=== PATIENT | female | born 1975 | race Caucasian/White ===

== ENCOUNTER 2016-09-22 18:13 | Inpatient (IN) | payer BC, OTHER ==
--- NOTE | ~2016-09-22 | CT4 ---
[facility] A Service of [facility] & [facility] RADIOLOGY TEXT RESULTS PATIENT: HEVER MAYA LOCATION: [facility] - : 71 UNIT #: [id number] AGE: [address]: Lucian Xiong MD SEX: F ORDER DR: [id number] [facility] [address] [place], [place] [address] [id number] I MR#: [id number] Acc #: [id number] NAME: HEVER MAYA. : 1975 SEX: F STUDY DATE/TIME: 09/26/2016 9:50 UNIT: [facility] ROOM: 216 STUDY DESCRIPTION: CT Abd and Pelv Wo Cont Attending Physician: Lucian Xiong M.D. Ordering Physician: Bruce Yates M.D. Primary Care Physician: Inocencio Ram M.D. MEDICAL IMAGING REPORT This report is preliminary unless electronic signature is present EXAM CT of the abdomen and pelvis without contrast INDICATIONS Follow up perforated sigmoid diverticulitis with abscess. TECHNIQUE CT of the abdomen and pelvis was performed without contrast. Coronal and sagittal reformatted images were obtained. Comparison is made with 09/22/2016. This CT exam was performed with one or more of the following radiation dose reduction techniques: Automatic exposure control, adjustment of mA and/or kV according to patient size, and iterative reconstruction. FINDINGS There are tiny bilateral pleural effusions with associated atelectasis in the lower lobes. Liver is unremarkable. Cholelithiasis. The spleen is unremarkable. Punctate, nonobstructing stone in the left kidney. Right kidney unremarkable. The adrenal glands and pancreas are both unremarkable. There are a few small foci of retroperitoneal gas in the region of the kidneys. These have decreased slightly. Further down the retroperitoneum, there is some stranding in the region of the aortic bifurcation. PELVIS: Redemonstrated is a small diverticular abscess deep within the pelvis at the midline. Overall, it is unchanged in size, measuring about 4.4 x 3.7 cm. The collection, due to its location deep within the pelvis and surrounded by bowel, vessels and bony structures is not amenable for percutaneous drainage or aspiration at this time. There is trace free fluid in the deep pelvis. The remainder of the pelvis is unchanged. Bone windows are unremarkable. IMPRESSION [facility] A Service of [facility] & [facility] RADIOLOGY TEXT RESULTS PATIENT: HEVER MAYA LOCATION: [facility] 216-01 : 71 UNIT #: [id number] AGE: [address]: Lucian Xiong MD SEX: F ORDER DR: Stable diverticular abscess deep within the pelvis as described above. It is unchanged in size. However, due to its location, it is unable to be accessed percutaneously for either aspiration or drainage. Dictated by... Иван Velarde M.D. THIS IS AN ELECTRONICALLY VERIFIED REPORT Иван Velarde M.D. at 09/27/2016 2:20 PM AKANKSHA/marco TD: 09/26/2016 23:36 JOB #: [id number] MEDICAL IMAGING REPORT Page 1 of 1 COPY
--- NOTE | ~2016-09-22 | CT2 ---
[facility] A Service of [facility] & [facility] RADIOLOGY TEXT RESULTS PATIENT: HEVER MAYA LOCATION: [facility] 216- : 71 UNIT #: [id number] AGE: [address]: Lucian Xiong MD SEX: F ORDER DR: [id number] [facility] [address] [place], [place] [address] [id number] E MR#: [id number] Acc #: [id number] NAME: HEVER MAYA. : 1975 SEX: F STUDY DATE/TIME: 09/22/2016 21:24 UNIT: [facility] ROOM: STUDY DESCRIPTION: CT Abd and Pelv W Cont Attending Physician: Eric Crockett M.D. Ordering Physician: Torres Meyer D.O. Primary Care Physician: Inocencio Ram M.D. MEDICAL IMAGING REPORT This report is preliminary unless electronic signature is present EXAM CT of the abdomen and pelvis with contrast. HISTORY Abdominal pain, fever x3 days, nausea, diarrhea. COMPARISON CT abdomen and pelvis 09/29/2010. TECHNIQUE Axial images performed through the abdomen and pelvis following IV and oral contrast. Multiplanar reconstructed images reviewed at a workstation. This CT exam was performed with one or more of the following radiation dose reduction techniques: automatic exposure control, adjustment of mA and/or kV according to patient size, and iterative reconstruction. FINDINGS ABDOMEN: Lung bases unremarkable. Diffuse fatty infiltration of the liver. Solitary gallstone but no evidence of cholecystitis. Spleen unremarkable except for granulomas. Pancreas, kidneys and adrenal glands appear normal. There is extensive bowel wall thickening involving the sigmoid colon within the central pelvis extending over at least 14 cm in length. This is nonspecific, but most likely indicative of diverticulitis. There are a few scattered colonic diverticula. Superior to the area of bowel wall thickening and pericolonic inflammatory change, there is a 4.6 x 3.7 x 5 cm air and fluid-filled collection concerning for abscess. Soft tissue gas noted superior to the suspected abscess. There is mild distension of several small bowel loops, possibly related to ileus or low grade obstruction. Aorta and IVC unremarkable except for a few shotty retroperitoneal lymph nodes. [facility] A Service of [facility] RADIOLOGY TEXT RESULTS PATIENT: HEVER MAYA LOCATION: A 216-01 : 71 UNIT #: [id number] AGE: [address]: Lucian Xiong MD SEX: F ORDER DR: PELVIS: The bladder, uterus unremarkable. Osseous structures show mild degenerative change of the lower lumbar spine. Moderate obesity. IMPRESSION 1. Extensive colonic wall thickening involving the sigmoid colon over at least a 14 cm length with surrounding pericolonic inflammatory changes. This most likely represents sigmoid diverticulitis, however, recommend clinical follow up to resolution. Superior to the area of suspected diverticulitis, there is a fluid and air-filled collection compatible with a intraabdominal abscess measuring up to 5 cm. Moderate amount of extraluminal gas is seen within the mesentery. This may in part be retroperitoneal. 2. Diffuse fatty infiltration of the liver. 3. Solitary gallstone. Dictated by... Joshua Velarde M.D. THIS IS AN ELECTRONICALLY VERIFIED REPORT Joshua Velarde M.D. at 09/23/2016 10:08 PM Ihsan TD: 09/22/2016 22:50 JOB #: [id number] MEDICAL IMAGING REPORT Page 1 of 1 COPY
--- NOTE | ~2016-09-22 | DS ---
Unit #: [id number] #: [id number] Patient: HEVER MAYA [id number] [address] [address] [id number] I MR#: [id number] NAME: HEVER MAYA. ROOM: 216 Age: 41 Sex: F Admission Date: 09/23/2016 : 1975 Discharge Date: 09/29/2016 Attending Physician: Lucian Xiong M.D. Primary Care Physician: Inocencio Ram M.D. DISCHARGE SUMMARY DISCHARGE DIAGNOSES 1. Acute sigmoid diverticulitis with small abscess formation. 2. Diabetes mellitus. 3. Morbid obesity. OPERATIVE PROCEDURES None. DISCHARGE MEDICATIONS 1. Augmentin 875 mg one p.o. b.i.d. 2. Flagyl 250 mg one p.o. q.i.d. 3. Percocet 7.5 mg one p.o. q.6 hours p.r.n. pain. The rest of the medications are as listed per nurse's notes and the medical reconciliation sheet. HISTORY OF PRESENT ILLNESS AND HOSPITAL COURSE A 41-year-old obese white female diabetic with left lower quadrant pain. CT scan showing diverticulitis with possible walled-off abscess. It was small enough that it could not be drained; however, we treated with intravenous antibiotics. Medical consultation followed the patient for her diabetes and hypertension. The patient became afebrile and her white blood cell count came down to normal. Overall, she presently at this time is tolerating solid food. She has had no fever in the last three days. The patient will be discharged on low-residue diet. She will come back to see us in the office in 7-10 days for followup evaluation. All the options for the patient were given as far as having to do a temporary colostomy versus bowel clean out. We will treat her conservatively at this time at patient request. Dictated by... Bruce Yates M.D. VALENTIN/myles TD: 09/29/2016 09:06 JOB #: [id number] Unit #: [id number] #: [id number] Patient: HEVER MAYA DISCHARGE SUMMARY Page 1 of 1 X Bruce Yates MD DISCHARGE SUMMARY
--- NOTE | ~2016-09-22 | HP ---
Unit #: [id number] #: [id number] Patient: HEVER MAYA [id number] [address] [place], [place] [address] [id number] I MR#: [id number] NAME: HEVER MAYA. ROOM: 216 Age: 41 Sex: F Admission Date: 09/23/2016 : 1975 Attending Physician: Roman Xiong M.D. Primary Care Physician: Inocencio Ram M.D. HISTORY AND PHYSICAL Ms. Maya is a 41-year-old, obese white female, diabetic, with three to four day history of lower abdominal pain, cramps, nausea, fever and leukocytosis. She was seen in the emergency department. CT scan of the pelvis was obtained and shows diverticulitis with 5 cm pericolonic abscess. She also was noted to have one gallstone but no evidence of any other gallbladder disease clinically. MEDICATIONS Include: 1. Lisinopril. 2. Metformin. 3. Hydrochlorothiazide. 4. Cipro. PAST SURGICAL HISTORY She has had previous section but no other operations. PAST MEDICAL HISTORY Otherwise shows: 1. History of questionable congestive heart failure. 2. Hypertension. 3. Diabetes. She does use alcohol but she is a nonsmoker. No illicit drug use. REVIEW OF SYSTEMS Otherwise noncontributory. PHYSICAL EXAMINATION GENERAL: Cooperative, alert, obese white female. VITAL SIGNS: Temperature 99 degrees, pulse 116, respirations 17, blood pressure 111/75. ENT: Clear. There is no jaundice. Pupils equal, reactive to light and accommodation. CHEST: Clear to auscultation and percussion. CARDIAC: Rhythm is regular. No audible murmurs. ABDOMEN: Soft, nondistended but she does have 2+ guarding in the left lower quadrant with slight rebound tenderness in the lower pelvis. There is no evidence of any rigidity or diffuse peritoneal signs consistent with perforation. EXTREMITIES: Full range of motion. 1-2+ peripheral pulses bilaterally. No edema. NEUROLOGICAL: Cranial nerves II-XII intact with no gross motor sensory deficits. She is oriented x3 with normal behavioral pattern. Unit #: [id number] #: [id number] Patient: HEVER MAYA IMPRESSION Local perforated diverticulitis with 5 cm abscess. PLAN We will increase antibiotic coverage. We will ask interventional radiology whether or not they think this can be drained percutaneously. Will see the patient back and follow her very closely. Dictated by Bruce Yates M.D. VALENTIN/laurie TD: 09/23/2016 06:25 JOB #: [id number] HISTORY AND PHYSICAL Page 1 of 1 X Bruce Yates MD X HISTORY AND PHYSICAL
--- NOTE | ~2016-09-22 | EKG ---
PATIENT: HEVER MAYA UNIT #: [id number] Ventricular Rate: 55 BPM Atrial Rate: 55 BPM P-R Interval: 166 ms QRS Duration: 102 ms Q-T Interval: 452 ms QTC Calculation(Bezet): 432 ms P [place]: 10 degrees Calculated R [place]: -40 degrees Calculated T [place]: -8 degrees Diagnosis Line: Sinus bradycardia Diagnosis Line: Left axis deviation Diagnosis Line: RSR' or QR pattern in V1 suggests right Diagnosis Line: ventricular conduction delay Diagnosis Line: Abnormal ECG Diagnosis Line: No previous ECGs available Diagnosis Line: Confirmed by AJITH ANDREWS MD ([id number]) on Diagnosis Line: 09/28/2016 9:47:57 PM INTERPRETING MD: NORBERT
[2016-09-22 19:00] LABS: BASOPHIL# 0.1 X10e3 (0-0.3); BASOPHIL% 0.6 % (0-2.5); EOSINOPHIL# 0.2 X10e3 (0-0.7); EOSINOPHIL% 1.3 % (0.0-7.0); HEMATOCRIT 40.2 % (35.0-45.0); HEMOGLOBIN 13.4 gm/dL (12.0-16.0); LYMPHOCYTE# 2.1 X10e3 (1.0-3.5); MEAN CORPUSCULAR HEMOGLOBIN 31.7 PG (28-34); MEAN CORPUSCULAR HGB CONC 33.4 g/dL (30-36); MEAN PLATELET VOLUME 7.6 FL (6.5-11.5); MONOCYTE# 1.1 X10e3 (0-1.0); MONOCYTE% 5.6 % (3.0-12.0); NEUTROPHIL# 15.6 X10e3 (1.5-7.1); NEUTROPHIL% 81.5 % (40-75); PLATELET COUNT 296 X10e3 (140-420); RED BLOOD COUNT 4.24 X10e (3.90-5.30); WHITE BLOOD COUNT 19.1 X10e3 (4.0-10.5)
[2016-09-22 19:01] LABS: DIFF IND YES
[2016-09-22 19:18] LABS: ALBUMIN SERUM 3.8 g/dL (3.5-5.0); BILIRUBIN, DIRECT 0.2 mg/dL (0.0-0.2); BILIRUBIN,INDIRECT 0.8 mg/dL (0.0-0.9); BUN/CREATININE RATIO 14.44; CALCIUM SERUM 9.2 mg/dL (8.4-10.2); CREATININE SERUM 0.9 mg/dL (0.6-1.4); GLOM FILT RATE Estimated 78.4 mL/min (>60); POTASSIUM 3.9 mmol/L (3.5-5.1); PROTEIN TOTAL SERUM 7.6 g/dL (6.0-8.3)
[2016-09-22 19:28] LABS: PLATELET ESTIMATE NORMAL (NORMAL)
[2016-09-22 20:07] LABS: URINE SOURCE CLEAN CATCH
[2016-09-22 20:15] LABS: URINE APPEARANCE CLOUDY; URINE BILIRUBIN NEG (NEG); URINE BLOOD 3+ (NEG); URINE COLOR YELLOW; URINE GLUCOSE NEG (NEG); URINE KETONE NEG (NEG); URINE LEUKOCYTE ESTERASE TRACE (NEG); URINE NITRATE NEG (NEG); URINE PROTEIN NEG (NEG); URINE SPECIFIC GRAVITY 1.019 (1.003-1.035)
[2016-09-22 20:19] LABS: CULTURE INDICATED? YES; URINE BACTERIA AUWI 2+ (NEGATIVE); URINE SQUAMOUS EPITHELIAL CELL MOD /[HPF]
[2016-09-23] MEDS ORDERED: HYDROCHLOROTHIA25 MG PO (02:38)
[2016-09-23] MEDS ORDERED: METFORMIN HCL500 M3 PO (02:40)
[2016-09-23] MEDS ORDERED: PRINIVIL20 M1 PO (02:40)
[2016-09-23] MEDS ORDERED: VOLTAREN75 MG PO (02:42)
[2016-09-24 09:28] LABS: HEMOGLOBIN 11.5 gm/dL (12.0-16.0); MEAN CELL VOLUME 95.3 FL (83-96); MEAN CORPUSCULAR HEMOGLOBIN 32.3 PG (28-34); MEAN CORPUSCULAR HGB CONC 33.9 g/dL (30-36); MEAN PLATELET VOLUME 7.1 FL (6.5-11.5); RED BLOOD COUNT 3.57 X10e (3.90-5.30); RED CELL DISTRIBUTION WIDTH 12.7 % (11.0-15.5); WHITE BLOOD COUNT 10.1 X10e3 (4.0-10.5)
[2016-09-24 10:28] LABS: BUN/CREATININE RATIO 13.75; CALCIUM SERUM 8.3 mg/dL (8.4-10.2); CREATININE SERUM 0.8 mg/dL (0.6-1.4); GLOM FILT RATE Estimated 90.4 mL/min (>60); MAGNESIUM 1.9 mg/dL (1.6-3.0); POTASSIUM 3.9 mmol/L (3.5-5.1)
[2016-09-25 05:11] LABS: HEMATOCRIT 34.5 % (35.0-45.0); HEMOGLOBIN 11.5 gm/dL (12.0-16.0); MEAN CELL VOLUME 96.3 FL (83-96); MEAN CORPUSCULAR HEMOGLOBIN 32.1 PG (28-34); MEAN CORPUSCULAR HGB CONC 33.4 g/dL (30-36); MEAN PLATELET VOLUME 8.1 FL (6.5-11.5); RED BLOOD COUNT 3.58 X10e (3.90-5.30); RED CELL DISTRIBUTION WIDTH 12.4 % (11.0-15.5); WHITE BLOOD COUNT 8.6 X10e3 (4.0-10.5)
[2016-09-25 06:08] LABS: BUN/CREATININE RATIO 12.85; CALCIUM SERUM 8.4 mg/dL (8.4-10.2); CREATININE SERUM 0.7 mg/dL (0.6-1.4); GLOM FILT RATE Estimated 106.1 mL/min (>60); MAGNESIUM 1.9 mg/dL (1.6-3.0); POTASSIUM 4.3 mmol/L (3.5-5.1)
[2016-09-28 05:17] LABS: HEMATOCRIT 35.8 % (35.0-45.0); HEMOGLOBIN 12.1 gm/dL (12.0-16.0); MEAN CELL VOLUME 94.7 FL (83-96); MEAN CORPUSCULAR HEMOGLOBIN 32.1 PG (28-34); MEAN CORPUSCULAR HGB CONC 33.9 g/dL (30-36); MEAN PLATELET VOLUME 7.4 FL (6.5-11.5); RED BLOOD COUNT 3.78 X10e (3.90-5.30); WHITE BLOOD COUNT 12.2 X10e3 (4.0-10.5)
[2016-09-28 06:27] LABS: ALBUMIN SERUM 2.8 g/dL (3.5-5.0); BILIRUBIN,TOTAL 0.4 mg/dL (0.2-2.0); CALCIUM SERUM 8.8 mg/dL (8.4-10.2); CREATININE SERUM 0.8 mg/dL (0.6-1.4); GLOM FILT RATE Estimated 90.4 mL/min (>60); POTASSIUM 4.4 mmol/L (3.5-5.1); PROTEIN TOTAL SERUM 5.7 g/dL (6.0-8.3)
[2016-09-29 07:54] LABS: MEAN CELL VOLUME 94.1 FL (83-96); MEAN CORPUSCULAR HEMOGLOBIN 31.7 PG (28-34); MEAN CORPUSCULAR HGB CONC 33.7 g/dL (30-36); MEAN PLATELET VOLUME 7.2 FL (6.5-11.5); RED BLOOD COUNT 4.47 X10e (3.90-5.30); RED CELL DISTRIBUTION WIDTH 12.9 % (11.0-15.5); WHITE BLOOD COUNT 9.9 X10e3 (4.0-10.5)
[2016-09-29] MEDS ORDERED: PERCOCET 7.5-31 EACH PO (08:00)
[2016-09-29] MEDS ORDERED: AUGMENTIN PO (08:00)
[2016-09-29] MEDS ORDERED: FLAGYL250 M1 PO (08:01)
[2016-09-29 08:37] LABS: HEMOGLOBIN 14.2 gm/dL (12.0-16.0)
[2016-09-29 10:06] LABS: BUN/CREATININE RATIO 11.25; CALCIUM SERUM 9.3 mg/dL (8.4-10.2); CREATININE SERUM 0.8 mg/dL (0.6-1.4); GLOM FILT RATE Estimated 90.4 mL/min (>60); MAGNESIUM 1.8 mg/dL (1.6-3.0); POTASSIUM 4.4 mmol/L (3.5-5.1)
== END 2016-09-29 11:34 | disposition home or self-care (01) | DRG 872 ==
LOC: CED 18:13 → CEDOF 09-23 00:40 → C2A 09-23 00:40 → CEDOF 09-23 00:49 → CED 09-23 00:49 → C2A 09-23 00:49 → CEDOF 09-23 01:55 → C2A 09-23 01:55
PROVIDERS: Emergency Medicine; Internal Medicine; Nurse Practitioner; Specialist; Surgery
DX: A41.9 Sepsis, unspecified organism (principal); K57.20 Diverticulitis of large intestine with perforation and abscess without bleeding; I10 Essential (primary) hypertension; E11.9 Type 2 diabetes mellitus without complications; D72.829 Elevated white blood cell count, unspecified; R00.1 Bradycardia, unspecified; K80.80 Other cholelithiasis without obstruction; Z79.84 Long term (current) use of oral hypoglycemic drugs; Z68.39 Body mass index [BMI] 39.0-39.9, adult; G47.33 Obstructive sleep apnea (adult) (pediatric); R42 Dizziness and giddiness; I95.1 Orthostatic hypotension; E66.01 Morbid (severe) obesity due to excess calories
CPT/HCPCS: 74176; 74177; 80048; 80053; 80076; 81003; 82947; 83605; 83690; 83735; 84703; 85025; 85027; 87086; 93005; 96365; 96375; 99285; C9113; J1815; J2270; J2405; J2543; Q9967